=== PATIENT | female | born 1990 | race Caucasian/White ===

== ENCOUNTER 2022-07-02 04:17 | Emergency (ER) | payer MEDICAID ==
[~2022-07-02] VITALS: Ht 167.6 cm; Wt 72.7 kg
[2022-07-02 04:53] VITALS: BP 139/88
[2022-07-02] MEDS ORDERED: cefTRIAXone 1GM/50ML D5W 50 ML IV ONE (06:45)
[2022-07-02 06:53] LABS: Basophils # (auto) 0 10 ^3/uL (0-0.2); Eosinophils # (auto) 0 10 ^3/uL (0-0.8); Eosinophils % (auto) 0.2 % (0.0-7.0); Monocytes # (auto) 0.5 10 ^3/uL (0-1.3)
[2022-07-02 06:54] LABS: Basophils % (auto) 0.2 % (0.0-2.0); Hematocrit 37.8 % (36.0-46.0); Hemoglobin 13.3 g/dL (12.2-16.2); Lymphocytes # (auto) 1.8 10 ^3/uL (0.4-5.4); Mean Corpuscular Hemoglobin 28.4 pg (28.0-32.0); Mean Corpuscular Hgb Conc. 35.1 g/dL (32.0-36.0); Mean Corpuscular Volume 80.8 fL (80.0-100.0); Monocytes % (auto) 6.3 % (0.0-12.0); Neutrophils # (auto) 5.9 10 ^3/uL (1.6-8.6); Neutrophils % (auto) 71.3 % (37.0-80.0); Nucleated Red Blood Cells % 0.2 %; Red Blood Cells 4.68 10^6/uL (4.0-5.20); Red Cell Distribution Width 14.1 % (11.8-14.3); White Blood Cell 8.3 10^3/uL (4.4-10.8)
[2022-07-02] MEDS ORDERED: CLINDAMYCIN 600MG IV 50 ML IV ONE (07:00)
[2022-07-02 07:08] LABS: Albumin 3.8 g/dL (3.4-5.0); Calcium 9.5 mg/dL (8.5-10.1); Potassium 3.5 mmol/L (3.5-5.1)
[2022-07-02 07:11] LABS: BUN/Creatinine Ratio 17.9 (10.0-20.0); Bilirubin, Total 0.6 mg/dL (0.2-1.0); Total Protein 8.7 g/dL (6.4-8.2)
== END 2022-07-02 08:37 | disposition left against medical advice (07) ==
LOC: ER 04:17
DX: L03.115 Cellulitis of right lower limb (principal); L03.116 Cellulitis of left lower limb; F17.210 Nicotine dependence, cigarettes, uncomplicated
CPT/HCPCS: 36415; 80053; 83880; 85025; 85379

== ENCOUNTER 2022-09-22 14:27 | Emergency (ER) | payer MEDICAID ==
[~2022-09-22] VITALS: Ht 167.6 cm; Wt 77.2 kg
[2022-09-22 15:53] VITALS: BP 98/52
[2022-09-22] MEDS ORDERED: HYDROcodone-ACET 10/325MG TAB PO ONE (16:30)
[2022-09-22] MEDS ORDERED: KETOROLAC TROMETH 60MG/2ML VIAL IM ONE (16:30)
[2022-09-22] MEDS ORDERED: IBUP-1455 PO (17:53)
[2022-09-22] MEDS ORDERED: HYDR-4902 PO (17:53)
== END 2022-09-22 17:56 | disposition home or self-care (01) ==
LOC: ER 14:27
DX: S87.82XA Crushing injury of left lower leg, initial encounter (principal); F17.210 Nicotine dependence, cigarettes, uncomplicated; F15.90 Other stimulant use, unspecified, uncomplicated; Z79.1 Long term (current) use of non-steroidal anti-inflammatories (NSAID); V98.8XXA Other specified transport accidents, initial encounter; Y93.89 Activity, other specified; Y92.89 Other specified places as the place of occurrence of the external cause; Y99.8 Other external cause status
CPT/HCPCS: 73552; 73562; 73590; 96372; 99284; J1885

== ENCOUNTER 2024-03-04 03:22 | Emergency (ER) | payer MEDICAID ==
[~2024-03-04] VITALS: Ht 167.6 cm; Wt 84.6 kg
[~2024-03-04 03:22] MED LIST: HYDR-4902 PO; IBUP-1455 PO
[2024-03-04 05:05] LABS: Urine Bacteria FEW /hpf (None Seen); Urine Blood Negative /uL (Negative); Urine Clarity Clear (Clear); Urine Color Light-Yellow (Yellow); Urine Protein, UAD Negative (Negative); Urine Specific Gravity 1.007 (1.001-1.035); Urine Urobilinogen Normal (Negative); Urine WBC 8 /hpf (0 - 5); Urine pH 7.5 (5.0-9.0)
--- NOTE | 2024-03-04 05:11 | ED.PDOC ---
Musculoskeletal HPI Comments THIS IS A 33-YEAR-OLD FEMALE PRESENTS TO THE ED CHIEF COMPLAINT BILATERAL LEG REDNESS AND SWELLING. PATIENT STATES OVER THE PAST WEEK SHE TO INCREASING LOWER LEG SWELLING AND REDNESS. REPORTS HISTORY OF BILATERAL LEG EDEMA AND CHRONIC CELLULITIS. SHE DENIES NUMBNESS, WEAKNESS, FEVER, CHILLS, CHEST PAIN OR SHORTNESS OF BREATH. Chief Complaint: Lower Extremity Time Seen by MD: 04:55 Primary Care Provider: Unknown Reviewed Notes: Nurses Notes, Medications, Allergies Allergies: Coded Allergies: NO KNOWN ALLERGIES (Unverified , 07/02/22) Home Meds Active Scripts Potassium Chloride (POTASSIUM CHLORIDE CR) 10 Meq Tb, 1 TAB PO DAILY for 14 Days, #14 TAB Prov:TRACY GAN [facility] 03/04/24 Furosemide (Furosemide) 20 Mg Tab, 1 TAB PO DAILY for 14 Days, #14 TAB Prov:TRACY GAN [facility] 03/04/24 Doxycycline Hyclate (Doxycycline Hyclate) 100 Mg Cap, 100 CAP PO BID for 10 Days, #20 CAP Prov:TRACY GAN [facility] 03/04/24 Hydrocodone-Acetaminophen (Hydrocodone Bitartrate/AC 5-325 mg) 1 Tab Tab, 1 TAB PO Q6HP PRN, #15 TAB Prov:SRINIVAS SERVIN PAC 09/22/22 Ibuprofen Micronized (Ibuprofen) 800 Mg Tab, 800 MG PO Q8HP PRN, #20 TAB Prov:SRINIVAS SERVIN PAC 09/22/22 Mode of Arrival: Ambulatory Past Medical History PAST MEDICAL HISTORY: Denies Past Medical History (Other): LOWER LEG EDEMA LOWER LEG CELLULITIS Surgical History: Denies all surgeries SENIOR [employer]UPAL DEVELOPER History: No Pertinent SENIOR [employer]UPAL DEVELOPER History Family History Family History: Reviewed,noncontributory to illness Social History Smoker: Cigarettes Alcohol: Denies ETOH Use Drugs: Marijuana Lives In: Home Constitutional: denies: chills, diaphoresis, fatigue, fever, malaise, sweats, weakness, others EENTM: denies: blurred vision, double vision, ear bleeding, ear discharge, ear drainage, ear pain, ear ringing, eye pain, eye redness, hearing loss, mouth pain, mouth swelling, nasal discharge, nose bleeding, nose congestion, nose pain, photophobia, tearing, throat pain, throat swelling, voice changes, others Respiratory: denies: cough, hemoptysis, orthopnea, SOB at rest, shortness of breath, SOB with excertion, stridor, wheezing, others Cardiovascular: reports: edema (BILATERAL LOWER LEGS); denies: chest pain, dizzy spells, diaphoresis, Dyspnea on exertion, irregular heart beat, left arm pain, lightheadedness, palpitations, PND, syncope, others Gastrointestinal: denies: abdomen distended, abdominal pain, blood streaked bowels, constipated, diarrhea, dysphagia, difficulty swallowing, hematemesis, melena, nausea, poor appetite, poor fluid intake, rectal bleeding, rectal pain, vomiting, others Genitourinary: denies: abnormal vagina bleeding, burning, dyspareunia, dysuria, flank pain, frequency, hematuria, incontinence, pain, , vagina discharge, urgency, others Neurological: denies: dizziness, fainting, headache, left sided numbness, left sided weakness, numbness, paresthesia, pre-existing deficit, right sided numbness, right sided weakness, seizure, speech problems, tingling, tremors, weakness, others Musculoskeletal: denies: back pain, gout, joint pain, joint swelling, muscle pain, muscle stiffness, neck pain, others Integumetry: reports: rash (BILATERAL LOWER LEGS) Allergic/Immunocompromised: denies: Difficulty Healing, Frequent Infections, Hives, Itching, others Hematologic/Lymphatic: denies: anemia, blood clots, easy bleeding, easy bruising, swollen glands, others Endocrine: denies: excessive hunger, excessive sweating, excessive thirst, excessive urination, flushing, intolerance to cold, intolerance to heat, unexplained weight gain, unexplained weight loss, others Psychiatric: denies: anxiety, bipolar disorder, depression, hopeless, panic disorder, schizophrenia, sleepless, suicidal, others Physical Exam General Appearance: No Apparent Distress, Normal HEENT: Pharynx Normal Neck: Full Range of Motion, Non-Tender Respiratory: Chest Non-Tender, Lungs Clear, No Accessory Muscle Use, No Respiratory Distress, Normal Breath Sounds Cardiovascular: No Edema, No JVD, No Murmur, No Gallop, Normal Peripheral Pulses, Regular Rate/Rhythm Breast Exam: Deferred Gastrointestinal: No Organomegaly, Non Tender, No Pulsatile Mass, Normal Bowel Sounds, Soft Genitalia: Deferred Pelvic: Deferred Rectal: Deferred Extremities: No calf tenderness, Normal capillary refill, Normal inspection, Normal range of motion, Non-tender, Pedal edema (PLUS FOUR PITTING EDEMA BILATERAL LOWER EXTREMITIES) Musculoskeletal : Apperance: Normal Neurologic: Alert, digital specialist II-XII nml as Tested, No Motor Deficits, Normal Affect, Normal Mood, No Sensory Deficits Cerebellar Function: Normal Reflexes: Normal Skin: Dry, Normal Color, Rash (BILATERAL LOWER LEG IF ERYTHEMA WITH WARMTH TO TOUCH NO OPEN LESIONS EXCORIATIONS OR DRAINAGE. NO NOTED ABSCESSES.), Warm Lymphatic: No Adenopathy Was a procedure done? Was a procedure done?: No Differential Diagnosis EXT Differential Diagnosis: Cellulitis X-Ray, Labs, Meds, VS Vital Signs Date Time Temp Pulse Resp B/P (MAP) Pulse Ox O2 Delivery O2 Flow Rate FiO2 03/04/24 05:15 118 18 98 Room Air* 0 21 03/04/24 05:15 98.0 118 16 129/83 (98) 98 98.0 03/04/24 03:36 98.3 127 16 129/83 (98) 98 Lab Test 03/04/24 04:00 Range/Units Urine Color Light-yellow Yellow Urine Clarity Clear Clear Urine pH 7.5 5.0-9.0 Urine Specific [place] 1.007 1.001-1.035 Urine Protein Negative Negative Urine Ketones Negative Negative Urine Blood Negative Negative /uL Urine Nitrite Negative Negative Urine Bilirubin Negative Negative Urine Urobilinogen Normal Negative mg/dL Urine Leukocyte Esterase Negative Negative /uL Urine RBC 2 0 - 4 /hpf Urine WBC 8 0 - 5 /hpf Urine Squamous Epithelial Cells Few <5 /hpf Urine Bacteria Few H None Seen /hpf Urine Glucose Normal Normal mg/dL Current Medications Medications (Trade) Dose Ordered Sig/Celia Route Start Time Stop Time Status Last Admin Ceftriaxone Sodium (Rocephin) 1,000 mg ONCE ONCE IM 03/04/24 05:30 03/04/24 05:31 DC 03/04/24 05:44 X-Ray, Labs, Meds, VS Comment UA OBTAINED POSITIVE FOR BACTERIA NEGATIVE FOR NITRATES. POSITIVE RBCS AND WBCS. WE WILL START PATIENT ON DOXYCYCLINE, LASIX, AND 10 MEQ OF POTASSIUM. ADVISED TO FOLLOW UP WITH HER PCP IN 2-3 DAYS. ER PRECAUTIONS GIVEN RETURN FOR INCREASED SIGNS AND SYMPTOMS OF INFECTION FEVER, NAUSEA, VOMITING, CHILLS, CHEST PAIN, SHORTNESS OF BREATH. PATIENT INDICATED UNDERSTANDING AGREES WITH DISCHARGE PLAN OF CARE. Time of 1ST Reevaluation: 05:27 Reevaluation 1ST: Improved Patient Education/Counseling: Diagnosis, Treatment, Prognosis, Need For Follow Up Family Education/Counseling: No Family Present Departure 1 Departure Time of Disposition: Impression: Primary Impression: Cellulitis Qualified Codes: L03.119 - Cellulitis of unspecified part of limb Additional Impression: Bilateral lower extremity edema Disposition: 62 INPATIENT REHAB FACILITY Condition: Stable e-Prescriptions Potassium Chloride (POTASSIUM CHLORIDE CR) 10 Meq Tb 1 TAB PO DAILY for 14 Days, #14 TAB Prov: TRACY GAN 03/04/24 Furosemide (Furosemide) 20 Mg Tab 1 TAB PO DAILY for 14 Days, #14 TAB Prov: TRACY GAN 03/04/24 Doxycycline Hyclate (Doxycycline Hyclate) 100 Mg Cap 100 CAP PO BID for 10 Days, #20 CAP Prov: TRACY GAN 03/04/24 Discharged With: Self Critical Care Note Critical Care Time?: No Stability Stability form required: TRACY Casas Mar 04, 2024 05:11
[2024-03-04 05:15] VITALS: BP 129/83; PULSE 118; RESP 18; TEMP 98; O2SAT 98
[2024-03-04] MEDS ORDERED: POTA-36 PO (05:25)
[2024-03-04] MEDS ORDERED: FURO20TA3 PO (05:25)
[2024-03-04] MEDS ORDERED: DOXY100C4 PO (05:25)
[2024-03-04] MEDS: cefTRIAXone SOD 1,000 MG VL IM ONE (05:44)
== END 2024-03-04 05:50 | disposition home or self-care (01) ==
LOC: ER 03:22
DX: L03.116 Cellulitis of left lower limb (principal); L03.115 Cellulitis of right lower limb; R60.0 Localized edema; F12.10 Cannabis abuse, uncomplicated; F17.210 Nicotine dependence, cigarettes, uncomplicated; Z79.899 Other long term (current) drug therapy
CPT/HCPCS: 96372; 99283; J0696; 81001